=== PATIENT | female | born 1980 | race Caucasian/White ===

== ENCOUNTER 2016-12-17 12:55 | Emergency (ER) | payer OTHER ==
[~2016-12-17] VITALS: Ht 162.6 cm; Wt 76.2 kg
[~2016-12-17 12:55] MED LIST: AMOXICILLIN500 M1 PO; BACTRIM DS TAB1 EACH PO; CELEXA20 MG PO; IMPLANON; KEFLEX500 MG PO; NASONEX17 GM NASAL; OMEPRAZOLE20 MG PO; ROBAXIN 750 MG750 M1 PO; TRAMADOL 50 MG50 MG PO; ZOFRAN ODT4 MG PO
[2016-12-17] MEDS ORDERED: SYMBICORT160 MCG/4. INH (13:04)
[2016-12-17] MEDS ORDERED: QVAR8.7 G1 IH (13:04)
[2016-12-17 13:43] VITALS: BP 98/52
[2016-12-17] MEDS ORDERED: TRIAMCINOLONE A80 G2 TOP (13:55)
[2016-12-17] MEDS ORDERED: VENTOLIN HFA 1818 GM INH (13:55)
== END 2016-12-17 14:19 | disposition home or self-care (01) ==
LOC: ER 12:55
DX: J45.901 Unspecified asthma with (acute) exacerbation (principal); L25.9 Unspecified contact dermatitis, unspecified cause

== ENCOUNTER 2017-11-17 08:57 | Emergency (ER) | payer OTHER ==
[~2017-11-17] VITALS: Ht 162.6 cm; Wt 81.7 kg
[~2017-11-17 08:57] MED LIST changes: +AUGMENTIN 875-1 EACH PO; +BENADRYL25 MG PO; +IBUPROFEN 600600 M1 PO; +MULTIVITAMINS1 EAC7 PO; +QVAR8.7 G1 IH; +SUDAFED 12 HOU120 MG PO; +SYMBICORT160 MCG/4. INH; +TRIAMCINOLONE A80 G2 TOP; +VENTOLIN HFA 1818 GM INH
[2017-11-17] MEDS ORDERED: ZOFRAN ODT4 MG PO (09:13)
[2017-11-17] MEDS ORDERED: NORCO 5-325 TA1 EACH PO (09:13)
[2017-11-17] MEDS ORDERED: PENICILLIN VK500 M1 PO (09:13)
[2017-11-17 09:56] VITALS: BP 112/72
== END 2017-11-17 09:59 | disposition home or self-care (01) ==
LOC: ER 08:57
DX: K08.89 Other specified disorders of teeth and supporting structures (principal); R51 Headache; J45.909 Unspecified asthma, uncomplicated

== ENCOUNTER 2018-05-02 08:48 | Emergency (ER) | payer OTHER ==
[~2018-05-02] VITALS: Ht 162.6 cm; Wt 81.7 kg
[~2018-05-02 08:48] MED LIST changes: +NORCO 5-325 TA1 EACH PO; +PENICILLIN VK500 M1 PO
[2018-05-02 08:49] VITALS: BP 127/64
[2018-05-02] MEDS ORDERED: CELEXA20 MG PO (09:03)
== END 2018-05-02 09:32 | disposition home or self-care (01) ==
LOC: ER 08:48
DX: N64.52 Nipple discharge (principal); J45.909 Unspecified asthma, uncomplicated

== ENCOUNTER 2019-02-27 22:26 | Emergency (ER) | payer BC, OTHER ==
[~2019-02-27] VITALS: Ht 162.6 cm; Wt 86.2 kg
[2019-02-27 23:37] LABS: ANION GAP 11 mmol/L (7-16); BASOPHILS 0.1 % (0.0-2.0); BUN 10 mg/dL (7-18); CALCIUM 9.5 mg/dL (8.5-10.1); CHLORIDE 101 mmol/L (98-107); CO2 27 mmol/L (21-32); CREATININE 0.9 mg/dL (0.6-1.0); GLUCOSE 112 mg/dL (74-106); HEMATOCRIT 36.2 % (37.0-47.0); HEMOGLOBIN 11.6 gm/dL (12.0-15.0); LYMPHOCYTES 7.9 % (24.0-44.0); MCH 27.5 pg (26.0-34.0); MCHC 32.2 g/dL (28.0-37.0); MCV 85.3 fL (80.0-100.0); MONOCYTES 4.9 % (1.0-8.0); PLATELET COUNT 306 thou/uL (150-400); POLYS 87.1 % (36.0-66.0); POTASSIUM 4.2 mmol/L (3.5-5.1); RBC 4.24 mil/uL (4.20-5.00); RDW 19.4 % (10.5-14.5); SODIUM 139 mmol/L (136-145)
[2019-02-27 23:41] LABS: URINE BILIRUBIN NEGATIVE (Negative); URINE BLOOD NEGATIVE (Negative); URINE CLARITY SL CLOUDY; URINE COLOR YELLOW; URINE GLUCOSE-RANDOM* NEGATIVE (Negative); URINE KETONES NEGATIVE (Negative); URINE LEUKOCYTES-REFLEX NEGATIVE (Negative); URINE NITRITE-REFLEX NEGATIVE (Negative); URINE PROTEIN (DIPSTICK) NEGATIVE (Negative); URINE UROBILINOGEN 0.2 E.U./dl (0.2-1.0)
[2019-02-27 23:43] LABS: ALBUMIN 3.6 g/dL (3.4-5.0); DIRECT BILIRUBIN < 0.1 mg/dL (<0.1-0.3); LIPASE 82 U/L (73-393); SGOT 27 U/L (15-37); SGPT 41 U/L (30-65); TOTAL BILIRUBIN 0.3 mg/dL (<0.1-1.0); TOTAL PROTEIN 7.8 g/dL (6.4-8.2)
[2019-02-28] MEDS ORDERED: DOXYCYCLINE 10100 MG PO (05:04)
[2019-02-28] MEDS ORDERED: NORCO 5-325 TA1 EAC1 PO (05:04)
[2019-02-28] MEDS ORDERED: CITRATE OF MAG296 ML PO (05:05)
[2019-02-28] MEDS ORDERED: SENNA-DOCUSATE1 EAC1 PO (05:05)
[2019-02-28 05:21] VITALS: BP 119/61
== END 2019-02-28 05:21 | disposition home or self-care (01) ==
LOC: ER 22:26
PROVIDERS: Emergency Medicine
DX: M54.5 Low back pain (principal); M54.6 Pain in thoracic spine; J45.909 Unspecified asthma, uncomplicated

== ENCOUNTER 2019-02-28 19:23 | Inpatient (IN) | payer BC, OTHER ==
[~2019-02-28] VITALS: Ht 162.6 cm; Wt 87.5 kg
[~2019-02-28 19:23] MED LIST changes: +CITRATE OF MAG296 ML PO; +DOXYCYCLINE 10100 MG PO; +NORCO 5-325 TA1 EAC1 PO; +SENNA-DOCUSATE1 EAC1 PO
[2019-02-28 19:24] VITALS: BP 112/76
--- NOTE | 2019-02-28 20:01 | NUR ---
ice pack given to pt per request
[2019-02-28 22:19] LABS: ABSOLUTE NEUTROPHILS 3.9 thou/uL (1.4-8.2); BASOPHILS 0.5 % (0.0-2.0); EOSINOPHILS 3.6 % (0.0-3.0); HEMOGLOBIN 11.2 gm/dL (12.0-15.0); LYMPHOCYTES 23.9 % (24.0-44.0); MCH 27.4 pg (26.0-34.0); MCHC 31.9 g/dL (28.0-37.0); MCV 86.1 fL (80.0-100.0); MONOCYTES 7.1 % (1.0-8.0); PLATELET COUNT 278 thou/uL (150-400); POLYS 64.9 % (36.0-66.0); RBC 4.07 mil/uL (4.20-5.00); RDW 19.7 % (10.5-14.5)
[2019-02-28 22:38] LABS: ANION GAP 9 mmol/L (7-16); BUN 7 mg/dL (7-18); CALCIUM 9.1 mg/dL (8.5-10.1); CHLORIDE 104 mmol/L (98-107); CO2 30 mmol/L (21-32); CREATININE 0.8 mg/dL (0.6-1.0); GLUCOSE 81 mg/dL (74-106); POTASSIUM 3.4 mmol/L (3.5-5.1); SODIUM 143 mmol/L (136-145)
[2019-02-28 22:41] LABS: URINE BILIRUBIN NEGATIVE (Negative); URINE BLOOD NEGATIVE (Negative); URINE CLARITY SL CLOUDY; URINE COLOR YELLOW; URINE GLUCOSE-RANDOM* NEGATIVE (Negative); URINE KETONES NEGATIVE (Negative); URINE LEUKOCYTES-REFLEX TRACE (Negative); URINE NITRITE-REFLEX NEGATIVE (Negative); URINE PROTEIN (DIPSTICK) NEGATIVE (Negative); URINE SPECIFIC GRAVITY 1.025 (1.005-1.035); URINE UROBILINOGEN 0.2 E.U./dl (0.2-1.0)
[2019-02-28 22:44] LABS: ALBUMIN 3.5 g/dL (3.4-5.0); DIRECT BILIRUBIN < 0.1 mg/dL (<0.1-0.3); SGOT 21 U/L (15-37); SGPT 34 U/L (30-65); TOTAL BILIRUBIN 0.3 mg/dL (<0.1-1.0); TOTAL PROTEIN 7.4 g/dL (6.4-8.2)
[2019-02-28 23:18] VITALS: BP 117/73
[2019-02-28 23:28] VITALS: BP 117/73
[2019-03-01 04:07] VITALS: BP 144/74
[2019-03-01 05:52] LABS: HEMATOCRIT 31.1 % (37.0-47.0); HEMOGLOBIN 10.1 gm/dL (12.0-15.0); MCH 27.8 pg (26.0-34.0); MCHC 32.5 g/dL (28.0-37.0); MCV 85.6 fL (80.0-100.0); RBC 3.64 mil/uL (4.20-5.00); RDW 19.9 % (10.5-14.5); WBC 7.7 thou/uL (4.0-11.0)
--- NOTE | 2019-03-01 05:58 | NUR ---
ADMITTED FROM ER UNDER 'S CARE. [facility] TABLE TENDER FOR AT BEDSIDE. ADMITTED WITH CONSTIPATION X 4. MAG CITRATE GIVEN TO PT, REFUSED TO FINISH DESPITE THE EFFORT TO CONTROL SICKNESS WITH ZOFRAN. ALSO GAVE DUCOLAX SUPP, SMALL BM. PT REQUESTED ANOTHER SUPP, CALLED [facility], [facility] DECLINED AND GAVE PERMISSION TO GIVE MIRALAX WITH SENNA. PT REFUSED. LATER ON, PT C/O BILAT LEG PAIN. NEGATIVE FOR TAMIA'S SIGN. EARLIER WHEN ADMITTED ON THE FLOOR, PT SAID PT HAS GOUT PAIN ON BLE. CALLED [facility] AND [facility] RECOMMENDED TO GIVE TORADOL. 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 2 INCISIONS ON R BREAST WITH DERMABOND. NO REDNESS, SWELLING NOTED UPON ARRIVAL. ICE PACKS PROVIDED FOR COMFORT. NO S/S ACUTE DISTRESS NOTED OR REPORTED AT THIS TIME. WILL CONT TO MONITOR FOR ANY CHANGES IN CONDITION.
[2019-03-01 06:01] LABS: CALCIUM 8.8 mg/dL (8.5-10.1); CREATININE 0.8 mg/dL (0.6-1.0); POTASSIUM 3.5 mmol/L (3.5-5.1)
[2019-03-01 08:27] VITALS: BP 115/71
--- NOTE | 2019-03-01 11:59 | NUR ---
ASSESSMENT-PT LIVES AT HOME WITH HER AND 6 YEAR OLD CHILD. PT HAD A LUMPECTOMY DONE AT [facility] A COUPLE OF DAYS AGO. PT RECEIVED CHEMOTHERAPY ABOUT 6 WKS AGO. 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 BEDROOM AND BATHROOM LOCATED ON MAIN LEVEL BUT LAUNDRY LOCATED IN THE BASEMENT. PT USUALLY DOES HER OWN LAUNDRY. PT VOICES NO CONCERNS RELATED TO DC. FOLLOWING TO ASSIST WITH DC PLANNING.
--- NOTE | 2019-03-01 12:35 | NUR ---
PT A&OX4, IV INTACT IN L AC INFUSING FLUIDS W/O COMPS. PT IS UNSTEADY WHEN AMBULATING TO BATHROOM. STATES SHE HAS PAIN FROM THE KNEE DOWN TO FEET. PT HAS HAD HER GABAPENTIN RESTARTED AND GIVEN. ABD X RAY DONE. PT HAS HAD A MED FORMED BM THIS AM. WILL CONT POC,.
[2019-03-01 18:10] VITALS: BP 124/72
[2019-03-01 20:18] VITALS: BP 117/69
--- NOTE | 2019-03-02 03:17 | NUR ---
The pts. dressing from Rt. lumpectomy dry and intact. She is A/O x4. She c.o. pain from knees to the feet bilateral and pain medications given which were effective. IV fluids infusing. She c.o. cramping and stomach upset which resided. She remains on clear liquid diet and fall prevention measures are in place.
[2019-03-02 04:19] VITALS: BP 115/73
--- NOTE | 2019-03-02 18:47 | NUR ---
Patient has been NPO since after breakfast due to continued ileus. Water enema's have been ordered with one of these completed during this shift; no formed stool after this procedure. Patient has been complaining of unrelieved abdominal pain throughout shift. She has been encouraged to ambulate but has done little of this. has been at bedside throughout this shift. Incision sites from recent lumpectomy are without redness, edema or drainage; she denies pain to these sites. LSCTA, BS x's 4, abdomen is tender et distended, vital signs are WNL's, skin is clean, warm, dry et intact. Will report to on-coming RN.
[2019-03-02 20:45] VITALS: BP 132/67
[2019-03-03 03:40] VITALS: BP 114/76
--- NOTE | 2019-03-03 04:28 | NUR ---
PT STILL NPO.PT C/O ABD PAIN,TORADOL ADMINISTRED.PTSLEPT MOST OF THE NIGHT BUT WOKE UP AND STARTED COMPLAINING ABOUT ABD PAIN.PT WAS ENCOURAGED TO WLAK WHILE SHE CAN,DID ONE LAP.PER REPORT,PT WAS SUPPOSED TO GET ANOTHER ENEMA SHE REF IT AT HS BUT LATER CHANGED HER MIND WHEN SHE WOKE UP.ENEMA DONE X1 PT STILL C/O ABD PAIN.PT'S GABAPENTIN WAS INCREASED DUE TO PT NOT GETTING RELIEF.PT STARTED ON GAS X PER HER REQUEST.LAB HERE THIS AM TO DRAW HER BLOOS,PT REF.PT RESTING ON HER BED AT THIS TIME.CALL LIGHT WITHIN REACH.
[2019-03-03 07:28] LABS: HEMATOCRIT 32.2 % (37.0-47.0); HEMOGLOBIN 10.5 gm/dL (12.0-15.0); MCH 27.6 pg (26.0-34.0); MCHC 32.6 g/dL (28.0-37.0); MCV 84.6 fL (80.0-100.0); RBC 3.81 mil/uL (4.20-5.00); RDW 19.4 % (10.5-14.5); WBC 5.2 thou/uL (4.0-11.0)
[2019-03-03 07:31] VITALS: BP 139/71
[2019-03-03 07:38] LABS: CALCIUM 9.3 mg/dL (8.5-10.1); CREATININE 0.8 mg/dL (0.6-1.0); POTASSIUM 3.6 mmol/L (3.5-5.1)
[2019-03-03 15:38] VITALS: BP 137/83
--- NOTE | 2019-03-03 19:54 | NUR ---
Assumed care of pt at 0700. Pt alert and oriented x4. Pt c/o pain in abd and lower extremities. Tap water enema administered. Diet advanced to full liquids. Up ad abigail. Will continue to monitor.
[2019-03-03 20:20] VITALS: BP 118/74
--- NOTE | 2019-03-04 06:36 | NUR ---
The pt. requested soft foods, had appetite. NS infusing at 125/hr. Simethicone given prn in the evening for c.o. nausua and was effective. Order given for one time dose of Toradol for c.o. BLE pain in the evening and it was effective. No c.o. of abdomenal pain. She ambulated ad-abigail in the nite with IV pole.
[2019-03-04 08:58] VITALS: BP 112/74
[2019-03-04] MEDS ORDERED: SENNA-TIME S T1 EACH PO (09:43)
[2019-03-04] MEDS ORDERED: MIRALAX17 GM PO (09:43)
[2019-03-04 10:57] VITALS: BP 112/74
--- NOTE | 2019-03-04 11:05 | NUR ---
Assumed care of pt at 0700. Pt a&ox4. Beka pain this am. Pt states she had a small BM. Up ad abigail. Family in the room. IVF infusing. Pt will discharge this am.
== END 2019-03-04 11:25 | disposition home or self-care (01) | DRG 389 ==
LOC: ER 19:23 → EROBS 23:05 → 4E 23:05
PROVIDERS: Emergency Medicine; Nurse Practitioner Family; ADMIT Internal Medicine
DX: K56.41 Fecal impaction (principal); K56.7 Ileus, unspecified; J45.909 Unspecified asthma, uncomplicated; G62.9 Polyneuropathy, unspecified; E66.9 Obesity, unspecified; Z85.3 Personal history of malignant neoplasm of breast; Z68.33 Body mass index [BMI] 33.0-33.9, adult; Z92.21 Personal history of antineoplastic chemotherapy
CPT/HCPCS: 10084

== ENCOUNTER 2019-05-24 10:32 | Emergency (ER) | payer OTHER ==
[~2019-05-24] VITALS: Ht 162.6 cm; Wt 84.8 kg
[~2019-05-24 10:32] MED LIST changes: +MIRALAX17 GM PO; +SENNA-TIME S T1 EACH PO
[2019-05-24] MEDS ORDERED: FLUOXETINE DR90 MG PO (10:45)
[2019-05-24 12:05] LABS: ABSOLUTE NEUTROPHILS 4.3 thou/uL (1.4-8.2); BASOPHILS 0.4 % (0.0-2.0); EOSINOPHILS 1.6 % (0.0-3.0); HEMATOCRIT 34.8 % (37.0-47.0); HEMOGLOBIN 11.2 gm/dL (12.0-15.0); LYMPHOCYTES 10.7 % (24.0-44.0); MCH 27.1 pg (26.0-34.0); MCHC 32.1 g/dL (28.0-37.0); MCV 84.6 fL (80.0-100.0); MONOCYTES 7.1 % (1.0-8.0); PLATELET COUNT 208 thou/uL (150-400); POLYS 80.2 % (36.0-66.0); RBC 4.12 mil/uL (4.20-5.00); RDW 17.3 % (10.5-14.5); WBC 5.4 thou/uL (4.0-11.0)
[2019-05-24 12:12] LABS: ANION GAP 9 mmol/L (7-16); BUN 10 mg/dL (7-18); CALCIUM 9.6 mg/dL (8.5-10.1); CHLORIDE 101 mmol/L (98-107); CO2 28 mmol/L (21-32); CREATININE 0.7 mg/dL (0.6-1.0); GLUCOSE 80 mg/dL (74-106); POTASSIUM 3.7 mmol/L (3.5-5.1); SODIUM 138 mmol/L (136-145)
[2019-05-24 12:20] LABS: TROPONIN-I <0.06 ng/mL (<0.06)
[2019-05-24 13:00] VITALS: BP 107/62
--- NOTE | 2019-05-24 16:49 | EKG ---
[address] [address] ELECTROCARDIOGRAM REPORT Name: DEUTSCHJERODMELL SADA Room #: [facility]ITALFelicitas[facility] [id number] Admission: 05/24/19 Attend Phys: Discharge: 05/24/19 Date of : 84 Report #: [id number] THIS REPORT FOR: //name// [facility] ED Test Date: 2019-05-24 Test Time: 10:39:57 Pat Name: MELL DEUTSCH Department: Room: Gender: F Log Clerk: [facility] : 1980 Requested By: Sarwat Garcia Order Number: [id number] MD: Jose Guzman Measurements Intervals [place] Rate: 66 P: 13 [place]: 178 QRS: -7 QRSD: 86 T: 36 QT: 401 QTc: 421 Interpretive Statements Sinus rhythm No previous ECG available for comparison Electronically Signed On 05-24-2019 16:49:25 [employer] by Jose Guzman [email or web address] <ELECTRONICALLY SIGNED> By: Jose Guzman MD 05/24/19 [id number] Jose Guzman MD /TAMMIE
== END 2019-05-24 13:09 | disposition home or self-care (01) ==
LOC: ER 10:32
PROVIDERS: Nurse Practitioner
DX: R00.2 Palpitations (principal); Z98.51 Tubal ligation status

== ENCOUNTER 2020-07-20 16:11 | Emergency (ER) | payer OTHER ==
[~2020-07-20] VITALS: Ht 162.6 cm; Wt 88.0 kg
[~2020-07-20 16:11] MED LIST changes: +FLUOXETINE DR90 MG PO
[2020-07-20 16:27] VITALS: BP 103/61
== END 2020-07-20 18:55 | disposition home or self-care (01) ==
LOC: ER 16:11
DX: N64.4 Mastodynia (principal); Z98.51 Tubal ligation status; Z79.899 Other long term (current) drug therapy

== ENCOUNTER 2021-06-15 12:33 | Emergency (ER) | payer OTHER ==
[~2021-06-15] VITALS: Ht 162.6 cm; Wt 86.2 kg
[2021-06-15] MEDS ORDERED: AUGMENTIN 875-1 EACH PO (13:38)
[2021-06-15 14:17] VITALS: BP 106/62
== END 2021-06-15 14:18 | disposition home or self-care (01) ==
LOC: ER 12:33
DX: S61.251A Open bite of left index finger without damage to nail, initial encounter (principal); I10 Essential (primary) hypertension; J45.909 Unspecified asthma, uncomplicated; Z85.3 Personal history of malignant neoplasm of breast; Z79.899 Other long term (current) drug therapy; W55.01XA Bitten by cat, initial encounter; Y93.89 Activity, other specified; Y92.89 Other specified places as the place of occurrence of the external cause; Y99.8 Other external cause status